=== PATIENT | male | born 1990 | race Caucasian/White ===

== ENCOUNTER 2020-02-24 16:02 | Emergency (ER) | payer OTHER ==
--- NOTE | 2020-02-24 16:16 | TELE ---
HPI Do you have fever,cough or shortness of breath?: No - General Reason For Visit: COVID TESTING History Source: Patient Exam Limitations: No Limitations - History of Present Illness 02/24/20 16:13 Patient is a 29-year-old male who participated in a virtual urgent care visit for routine COVID testing for upcoming travel in 3 days. The patient denies any fevers or chills. He denies any body aches, cough, shortness of breath, sore throat, loss of taste or any other symptoms. He has a history of chronic back issues and denies any allergies to medications. He has not traveled outside of the [place] within the last 30 days. He denies being in contact with any known COVID patients. Review of Systems - Review of Systems Comments:: 02/24/20 16:14 - Review of Systems Able to Perform ROS?: Yes Constitutional: No: Fever, Chills, Loss of Appetite, Night Sweats, Weakness; positive: Routine COVID testing HEENTM: No: Eye Pain, Vision changes, Ear Pain, Throat Pain, Throat Swelling, Mouth Pain, Difficulty Swallowing Respiratory: No: Cough, Shortness of Breath, Wheezing, Sputum Production Cardiac (ROS): No: Chest Pain, Chest Tightness, Palpitations, Irregular Heart Beat, Edema ABD/GI: No: Nausea, Vomiting, Abdominal Pain, Diarrhea : No Dysuria, No Hematuria, No Frequency, No Urgency Musculoskeletal: No: Muscle Pain, Back Pain, Joint Pain, Muscle Weakness, Neck Pain Integumentary: No: Lesions, Rash Neurological: No: Headache, Numbness, Tingling, Weakness, Speech Difficulties *Physical Exam - Physical Exam 02/24/20 16:14 - Physical Exam General Appearance: Nourished, Appropriately Dressed, No Distress HEENT: EOMI, Normal Voice, Hearing Grossly Normal Neck: No Decreased range of motion Respiratory/Chest: Normal chest excursion appreciated, No Accessory Muscle Use Gastrointestinal/Abdominal: No distention Musculoskeletal: Normal Inspection Integumentary: Normal Color, Dry. 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 Plan: -COVID swab ordered -COVID counseling given, isolation precautions reviewed -Patient instructed to proceed to our [facility] for COVID testing -Patient understands and agrees with this treatment plan Discharge Diagnosis at time of Disposition: Counseled about COVID-19 virus infection - Referrals - Patient Instructions Discharge Instructions: [facility] Inst[facility], [facility] COVID-19 Isolation Protocol Additional Discharge Instructions: You were seen via a telehealth visit and tested for COVID today. You should follow isolation precautions as per [place] guidelines. Thank you for participating in our telehealth medicine program. If you have any worsening symptoms such as high fever, shaking chills, profuse vomiting or any other worsening symptoms you should go to your local emergency department immediately or follow up with your primary care doctor immediately. If you become symptomatic: Take Tylenol 650 mg every 6 hours as needed for fever or pain. You may take Robitussin or other [id number] cough syrup. Follow the dosing instructions on the bottle. Warm tea, honey, and salt water gargles may help your symptoms. Please take precautions and self quarantine for 2 weeks and follow-up with your primary care doctor and the Department of Health. Return to the nearest emergency department for shortness of breath, difficulty breathing, chest pain, or if you have any changes in your symptoms. - Discharge Disposition: HOME Condition at time of Disposition: Stable
== END 2020-02-24 16:16 | disposition home or self-care (01) ==
LOC: JVIRT 16:02
DX: Z11.59 Encounter for screening for other viral diseases (principal)
CPT/HCPCS: Q3014-GT; U0003

== ENCOUNTER 2020-05-14 18:57 | Emergency (ER) | payer OTHER | END 2020-05-14 19:20 | disposition home or self-care (01) | LOC: JVIRT 18:57 | DX: Z11.59 Encounter for screening for other viral diseases (principal) | CPT/HCPCS: C9803; Q3014-GT; U0003 ==

== ENCOUNTER 2020-05-20 21:04 | Emergency (ER) | payer OTHER ==
[2020-05-20 21:11] VITALS: BP 149/100; TEMP 97.8; BMI 23.7
[2020-05-20] MEDS ORDERED: KETOROLAC TROMETHAMINE 15 MG/ML VIAL IVPUSH ONE (21:30)
[2020-05-20] MEDS ORDERED: LIDOCAINE 5% TOPICAL PATCH TP ONE (21:31)
[2020-05-20] MEDS ORDERED: KETOROLAC TROMETHAMINE 15 MG/ML VIAL ONE (21:51)
[2020-05-20] MEDS ORDERED: LIDOCAINE 5% TOPICAL PATCH ONE (21:51)
[2020-05-20] MEDS ORDERED: LIDOCAINE PATCH REMOVAL MC ONE (22:00)
[2020-05-20 22:02] LABS: HEMATOCRIT 43.1 % (35.4-49); HEMOGLOBIN 14.7 GM/dL (11.7-16.9); MCH 30.4 pg (25.7-33.7); MCHC 34.1 g/dl (32.0-35.9); MEAN CELL VOLUME 89.2 fl (80-96); PLATELET COUNT 258 K/MM3 (134-434); RBC 4.83 M/mm3 (4.00-5.60); RDW 12.8 % (11.9-15.9)
[2020-05-20 22:09] LABS: EPI CELLS 4 /uL (0-25.1); HYALINE CASTS 3 /uL (0-3.1); PH,URINE 5.5 (5.0-8.0); URINE APPEARANCE CLEAR; URINE BACTERIA 19 /uL (0-1359); URINE BILIRUBIN NEGATIVE (NEGATIVE); URINE COLOR DK YELLOW; URINE GLUCOSE (UA) NEGATIVE (NEGATIVE); URINE KETONE TRACE (NEGATIVE); URINE LEUK ESTERASE NEGATIVE (NEGATIVE); URINE NITRITE NEGATIVE (NEGATIVE); URINE PROTEIN 1+ (NEGATIVE); URINE RBC 19 /uL (0-23.9); URINE WBC 4 /uL (0-25.8)
[2020-05-20 22:19] LABS: POTASSIUM 3.7 mmol/L (3.5-5.1)
[2020-05-20 22:21] LABS: BLOOD UREA NITROGEN 16.7 mg/dL (7-18)
[2020-05-20 22:22] LABS: ALBUMIN 4.9 g/dl (3.4-5.0)
[2020-05-20 22:26] LABS: BILIRUBIN,TOTAL 0.7 mg/dL (0.2-1)
[2020-05-20 22:59] VITALS: PULSE 87
[2020-05-20 23:17] LABS: INR 1.26 (0.83-1.09); PROTHROMBIN TIME (PATIENT) 15.2 SEC (9.7-13.0)
[2020-05-21 14:33] LABS: ACTIVATED PTT 34.2 SECONDS (25.2-36.5)
== END 2020-05-21 01:41 | disposition home or self-care (01) ==
LOC: JER 21:04
PROC: 3E0333Z Introduction of Anti-inflammatory into Peripheral Vein, Percutaneous Approach (ICD-10-PCS; principal; 2020-05-20)
DX: M54.6 Pain in thoracic spine (principal); J18.9 Pneumonia, unspecified organism
CPT/HCPCS: 36415; 71275-TC; 74177-TC; 80053; 80307; 81003; 85027; 85379; 85610; 85730; 93005; 93010; 99285-25